=== PATIENT | female | born 1965 | race Caucasian/White ===

== ENCOUNTER 2017-03-08 16:13 | Emergency (ER) | payer OTHER ==
[~2017-03-08] VITALS: Ht 162.6 cm; Wt 158.8 kg
[~2017-03-08 16:13] MED LIST: ALBU90OI INH; AMLO10 PO; ASPI81CH PO; ATOR80 PO; Adult Low Dose81 MG PO; BUME2 PO; CARV3.125 PO; CIPR500 PO; CIPRO500 MG PO; CODGUAEL PO; DOCU100 PO; DULO30 PO; FAMO20 PO; FAMO40 PO; FOLI1 PO; FURO20 PO; IBUP400; IBUP400 PO; IBUP600 PO; IBUP800 PO; LISI20 PO; LOSA25 PO; METF500 PO; METO10 PO; NAPR550 PO; Norco 5-325 Ta1 EACH PO; OMEP20ER PO; OMEP40CA12 PO; ONDA4ODT SL; OXYACE5T PO; OXYACE7.5T PO; OXYC5 PO; PANT40 PO; PHENERGAN25 MG RC; POTCHL20ER PO; PROC10 PO; PROM25 PO; Prednisone20 MG PO; SPIR25 PO; SULTRIDS PO; WARF4 PO; WARF6 PO; Wheelchair1 EACH MC; Zithromax250 MG PO; Zofran Odt4 MG SL; Zofran8 MG PO; [UNRECOGNIZED DRUG - CODE]
[2017-03-08 16:52] LABS: BASOPHILS ABSOLUTE AUTO 0.04 K/mm3 (0.00-0.23); BASOPHILS PERCENT AUTO 0 % (0-2); EOSINOPHILS PERCENT AUTO 2 % (0-6); Hematocrit 37.4 % (33.0-51.0); Hemoglobin 11.6 g/dL (11.5-16.0); IMMATURE GRAN ABSOLUTE AUTO 0.05 K/mm3 (0.00-0.10); IMMATURE GRAN PERCENT AUTO 0 % (0-1); LYMPHOCYTES ABSOLUTE AUTO 2.49 K/mm3 (0.84-5.20); LYMPHOCYTES PERCENT AUTO 19 % (21-46); MONOCYTES ABSOLUTE AUTO 0.86 K/mm3 (0.16-1.47); MONOCYTES PERCENT AUTO 7 % (4-13); Mean Corpuscular HGB 25.8 pg (26.0-34.0); Mean Corpuscular Volume 83 fL (80-100); Mean Platelet Volume 8.9 fL (9.1-12.4); NEUTROPHILS ABSOLUTE AUTO 9.22 K/mm3 (1.96-9.15); NEUTROPHILS PERCENT AUTO 72 % (41-73); Platelet Count 412 K/mm3 (150-400); RDW Coefficient Variation 14.7 % (11.7-14.2); RDW Standard Deviation 44.2 fL (35.1-46.3); White Blood Cell Count 12.86 K/mm3 (4.00-11.30)
[2017-03-08 17:14] LABS: Troponin I <0.015 ng/mL (0.000-0.040)
[2017-03-08 17:18] LABS: Alanine Aminotransfer (ALT/SGP 20 U/L (12-78); Albumin, Blood 3.5 g/dL (3.4-5.0); Albumin/Globulin Ratio 0.7 (0.8-1.8); Alk Phos 145 U/L (50-136); Anion Gap 9 mmol/L (6-16); Aspartate Aminotrans (AST/SGOT 20 U/L (12-37); Bilirubin, Total 0.5 mg/dL (0.1-1.0); Blood Urea Nitrogen 29 mg/dL (8-24); Bun/Creatinine Ratio 24.4 (12.0-20.0); CO2, Blood 24 mmol/L (21-32); Calcium, Blood 9.2 mg/dL (8.5-10.1); Chloride, Blood 97 mmol/L (98-108); Creatinine, Blood 1.19 mg/dL (0.40-1.00); Globulin, Blood 5.1 g/dL (2.2-4.0); Glomerular Filtration Rate 51 (60-); Glucose, Blood 114 mg/dL (70-99); Potassium, Blood 4.5 mmol/L (3.5-5.5); Sodium, Blood 130 mmol/L (136-145); Total Protein, Blood 8.6 g/dL (6.4-8.2)
[2017-03-08] MEDS ORDERED: Omeprazole20 M1 (19:18)
[2017-03-08] MEDS ORDERED: LIDO700A20 TOP (20:16)
== END 2017-03-08 20:57 | disposition home or self-care (01) ==
LOC: ER 16:13
DX: R07.89 Other chest pain (principal); I10 Essential (primary) hypertension; E11.9 Type 2 diabetes mellitus without complications
CPT/HCPCS: 36415; 71046; 80053; 84484; 85025; 85730; 93005; 93010; 96374; 96375; 99284; J1885; J2270; J2405

== ENCOUNTER 2018-04-05 08:36 | Emergency (ER) | payer OTHER ==
[~2018-04-05] VITALS: Ht 162.6 cm; Wt 172.4 kg
[~2018-04-05 08:36] MED LIST changes: +LIDO700A20 TOP; +Omeprazole20 M1
[2018-04-05] MEDS ORDERED: HYDR1TAB94 PO (08:55)
[2018-04-05] MEDS ORDERED: HYDMOR2 PO (10:43)
== END 2018-04-05 11:04 | disposition home or self-care (01) ==
LOC: ER 08:36
DX: M54.5 Low back pain (principal); E11.9 Type 2 diabetes mellitus without complications; I10 Essential (primary) hypertension; Z79.899 Other long term (current) drug therapy; Z79.01 Long term (current) use of anticoagulants; Z79.84 Long term (current) use of oral hypoglycemic drugs
CPT/HCPCS: 72100; 96372; 99283-25; J1170

== ENCOUNTER 2019-04-07 16:32 | Emergency (ER) | payer OTHER ==
[~2019-04-07] VITALS: Ht 162.6 cm; Wt 154.2 kg
[~2019-04-07 16:32] MED LIST changes: +HYDMOR2 PO; +HYDR1TAB94 PO
== END 2019-04-07 21:02 | disposition home or self-care (01) ==
LOC: ER 16:32
DX: S42.202A Unspecified fracture of upper end of left humerus, initial encounter for closed fracture (principal); E11.9 Type 2 diabetes mellitus without complications; I10 Essential (primary) hypertension; E66.01 Morbid (severe) obesity due to excess calories; Z68.43 Body mass index [BMI] 50.0-59.9, adult; Z79.899 Other long term (current) drug therapy; Z79.84 Long term (current) use of oral hypoglycemic drugs; Z79.01 Long term (current) use of anticoagulants; Z89.232 Acquired absence of left shoulder; W10.9XXA Fall (on) (from) unspecified stairs and steps, initial encounter
CPT/HCPCS: 73030; 96372; 99283-25; A9270; J1170

== ENCOUNTER 2019-10-28 05:19 | Emergency (ER) | payer OTHER ==
[~2019-10-28] VITALS: Ht 170.2 cm; Wt 158.8 kg
[~2019-10-28 05:19] MED LIST changes: +MEDR10 PO
== END 2019-10-28 10:45 ==
LOC: ER 05:19
DX: I46.9 Cardiac arrest, cause unspecified (principal); E11.9 Type 2 diabetes mellitus without complications; I10 Essential (primary) hypertension; E66.01 Morbid (severe) obesity due to excess calories; Z79.84 Long term (current) use of oral hypoglycemic drugs; Z79.01 Long term (current) use of anticoagulants; Z79.899 Other long term (current) drug therapy
CPT/HCPCS: 92950; 99285-25